=== PATIENT | female | born 1960 | race Caucasian/White ===

== ENCOUNTER 2017-11-25 10:46 | Outpatient (REF) | payer OTHER, SELFPAY ==
--- NOTE | 2017-11-25 09:15 | PAPFT_PTH ---
PATIENT: Bettina Rosenberg LOC: [facility] U#:[id number] AGE/SX: 57/F ROOM: RE11/25/[address]: Gely Regan : 1960 BED: DIS: 11/25/2017 SPEC #: [id number] RECD: 11/25/17 13:06 STATUS: JÚNIOR REHannah #: [id number] KOBE: 11/25/17 09:[address]: Gely Regan DEPT: [facility] Cytology RECD BY: Jewell Palacios ENTERED: 11/25/17 13:06 SP TYPE: PAPFT OTHR DR: Marcela Ayala Tissues: 1 - CX/ENDOCX FOR PAP SMEARS Procedures: PAP THIN PREP/[facility] Screening HPV DNA PROBE Comments: [id number] (CHLAMYDIA/GC)
[2017-11-26 14:54] LABS: Chlamydia Result Negative; GC Result Negative; Specimen Description SEE COMMENTS
== END 2017-11-25 11:06 ==
LOC: NCHCN 10:46
PROVIDERS: Visit Provider Nurse Practitioner
DX: Z11.3 Encounter for screening for infections with a predominantly sexual mode of transmission (principal); Z12.4 Encounter for screening for malignant neoplasm of cervix; Z11.51 Encounter for screening for human papillomavirus (HPV)
CPT/HCPCS: 87491; 87591; 88142; 87624

== ENCOUNTER 2020-10-02 14:08 | Outpatient (REF) | payer OTHER, SELFPAY ==
[2020-10-02 16:15] LABS: Bilirubin Negative (Negative); Blood Negative (Negative); Clarity Sl Cloudy (Clear); Glucose Negative (Negative); Ketones Trace mg/dL (Negative); Leukocyte Esterase Small (Negative); Nitrite Negative (Negative); Specific Gravity 1.015 (1.005-1.025); Urobilinogen 0.2 EU/dL (Up TO 0.2)
[2020-10-02 16:34] LABS: RBC 0-2 HPF (0-2)
[2020-10-02 16:35] LABS: Bacteria Rare HPF (Negative); C & S Indicated? C&S Done As Ordered; Epithelial Cells Many HPF (Negative)
== END 2020-10-02 14:09 | disposition home or self-care (01) ==
LOC: NCHCN 14:08
PROVIDERS: Visit Provider Nurse Practitioner Family
DX: R10.2 Pelvic and perineal pain (principal); R82.998 Other abnormal findings in urine
CPT/HCPCS: 81003; 81015; 87086

== ENCOUNTER 2021-07-10 19:26 | Outpatient (REF) | payer OTHER, SELFPAY ==
[2021-07-10 20:52] LABS: HCT 34.1 % (36.0-46.0); HGB 11.7 g/dL (11.2-15.7); MCH 32.2 pg (27.0-33.0); MCHC 34.3 % (32.0-36.0); MCV 94 fL (80-95); MPV 9.6 fL (8.0-11.0); Platelet Count 266 10^3/uL (130-400); RBC 3.63 10^6/uL (3.93-5.22); RDW 11.8 % (11.7-14.6); RDW-SD 40.5 fL; WBC 7.09 10^3/uL (4.4-10.8)
[2021-07-10 21:02] LABS: ALT 60 U/L (14-59); AST 66 U/L (15-37); Albumin 4.2 g/dL (3.4-5.0); Alkaline Phosphatase 110 U/L (46-116); Anion Gap 5.8 mmol/L (3-11); BUN 14 mg/dL (7-18); Bilirubin, Total 0.6 mg/dL (0.2-1.0); C-Reactive Protein 0.56 mg/dL (0.0-0.3); CO2 27.2 mmol/L (21.0-32.0); CREATININE 0.6 mg/dL (0.55-1.02); Calcium 9.1 mg/dL (8.5-10.1); Chloride 93 mmol/L (98-107); Glucose 92 mg/dL (74-106); Potassium 4.6 mmol/L (3.5-5.1); Sodium 126 mmol/L (136-145); Total Protein 8.2 g/dL (6.4-8.2)
[2021-07-10 21:41] LABS: Vitamin B12 866 pg/mL (193-986)
[2021-07-11 18:39] LABS: Rheumatoid Factor <8.6 IU/mL (<12.0)
[2021-07-14 15:27] LABS: ANA Interpretation Positive (Negative); ANA Titer Pattern 1:320 Homogeneous
== END 2021-07-10 19:27 | disposition home or self-care (01) ==
LOC: LBN 19:26
PROVIDERS: Visit Provider Nurse Practitioner Family
DX: M54.89 Other dorsalgia (principal); G89.29 Other chronic pain; E87.1 Hypo-osmolality and hyponatremia; E53.8 Deficiency of other specified B group vitamins
CPT/HCPCS: 80053; 85027; 82607; 86038; 86140; 86431

== ENCOUNTER 2021-11-20 18:08 | Outpatient (REF) | payer OTHER, SELFPAY ==
[2021-11-20 18:26] LABS: HCT 33.8 % (36.0-46.0); HGB 11.8 g/dL (11.2-15.7); MCH 33.1 pg (27.0-33.0); MCHC 34.9 % (32.0-36.0); MCV 95 fL (80-95); MPV 9.9 fL (8.0-11.0); Platelet Count 233 10^3/uL (130-400); RBC 3.56 10^6/uL (3.93-5.22); RDW 11.2 % (11.7-14.6); RDW-SD 39.2 fL; WBC 5.93 10^3/uL (4.4-10.8)
[2021-11-20 19:09] LABS: ALT 61 U/L (14-59); AST 69 U/L (15-37); Albumin 4.3 g/dL (3.4-5.0); Alkaline Phosphatase 107 U/L (46-116); Anion Gap 8.4 mmol/L (3-11); BUN 8 mg/dL (7-18); Bilirubin, Total 0.6 mg/dL (0.2-1.0); CO2 27.6 mmol/L (21.0-32.0); CREATININE 0.6 mg/dL (0.55-1.02); Calcium 9.6 mg/dL (8.5-10.1); Chloride 94 mmol/L (98-107); Estimated GFR 102.06 (mL/min/1.73m2); Glucose 104 mg/dL (74-106); Potassium 4.5 mmol/L (3.5-5.1); Sodium 130 mmol/L (136-145); Total Protein 8.5 g/dL (6.4-8.2)
== END 2021-11-20 18:09 | disposition home or self-care (01) ==
LOC: NCHCN 18:08
PROVIDERS: Visit Provider Nurse Practitioner Family
DX: K76.0 Fatty (change of) liver, not elsewhere classified (principal); R79.89 Other specified abnormal findings of blood chemistry; E87.1 Hypo-osmolality and hyponatremia
CPT/HCPCS: 80053; 85027

== ENCOUNTER 2024-07-28 15:23 | Outpatient (REF) | payer OTHER, SELFPAY ==
[2024-07-28 22:02] LABS: HCT 30.9 % (36.0-46.0); HGB 10.8 g/dL (11.2-15.7); MCH 32.4 pg (27.0-33.0); MCV 93 fL (80-95); MPV 10.6 fL (8.0-11.0); Platelet Count 249 10^3/uL (130-400); RBC 3.33 10^6/uL (3.93-5.22); RDW 11.6 % (11.7-14.6); RDW-SD 39.4 fL; WBC 6.44 10^3/uL (4.4-10.8)
[2024-07-28 22:04] LABS: ESR 55 mm/hr (0-30)
[2024-07-28 22:13] LABS: ALT 43 U/L (14-59); AST 55 U/L (15-37); Alkaline Phosphatase 86 U/L (46-116); Anion Gap 9.1 mmol/L (3-11); BUN 10 mg/dL (7-18); Bilirubin, Total 0.7 mg/dL (0.2-1.0); CO2 25.9 mmol/L (21.0-32.0); CREATININE 0.6 mg/dL (0.55-1.02); Calcium 9.1 mg/dL (8.5-10.1); Calculated LDL 191 mg/dL (<100); Chloride 95 mmol/L (98-107); Cholesterol 262 mg/dL (<200); Estimated GFR 100.17 (mL/min/1.73m2); Glucose 98 mg/dL (74-106); HDL Cholesterol 50 mg/dL (>or=50); Sodium 130 mmol/L (136-145); Total Protein 8.2 g/dL (6.4-8.2); Triglyceride 105 mg/dL (<150)
[2024-07-31 14:05] LABS: ANA Interpretation Positive (Negative); ANA Titer Pattern 1:80 Speckled
== END 2024-07-28 15:24 | disposition home or self-care (01) ==
LOC: NCHCN 15:23
PROVIDERS: PCP Nurse Practitioner Family; Visit Provider Nurse Practitioner Family
DX: G89.29 Other chronic pain (principal); I10 Essential (primary) hypertension; E78.5 Hyperlipidemia, unspecified
CPT/HCPCS: 80053; 80061; 85027; 85652; 86038

== ENCOUNTER 2024-11-01 15:06 | Outpatient (REF) | payer OTHER, SELFPAY ==
[2024-11-01 21:22] LABS: Iron 148 ug/dL (50-170); Total Iron Binding Capacity 347 ug/dL (250-450)
[2024-11-01 21:58] LABS: ALT 39 U/L (14-59); AST 42 U/L (15-37); Albumin 4.1 g/dL (3.4-5.0); Alkaline Phosphatase 97 U/L (46-116); Anion Gap 10.6 mmol/L (3-11); BUN 9 mg/dL (7-18); Bilirubin, Total 1.0 mg/dL (0.2-1.0); CO2 24.4 mmol/L (21.0-32.0); Calcium 9.2 mg/dL (8.5-10.1); Chloride 92 mmol/L (98-107); Estimated GFR 100.17 (mL/min/1.73m2); Ferritin 197 ng/mL (8-252); Folate 20.0 ng/mL (8.6-20.0); Glucose 99 mg/dL (74-106); Potassium 4.1 mmol/L (3.5-5.1); Sodium 127 mmol/L (136-145); TSH (W/Ref FT4) 1.59 uIU/mL (0.36-3.74); Total Protein 8.1 g/dL (6.4-8.2); Vitamin B12 483 pg/mL (193-986)
== END 2024-11-01 15:07 | disposition home or self-care (01) ==
LOC: NCHCN 15:06
PROVIDERS: PCP Nurse Practitioner Family; Visit Provider Nurse Practitioner Family
DX: R71.8 Other abnormality of red blood cells (principal); R53.82 Chronic fatigue, unspecified; E87.1 Hypo-osmolality and hyponatremia
CPT/HCPCS: 80053; 82607; 82728; 82746; 83540; 83550; 84443

== ENCOUNTER → 2024-12-07 05:28 | Outpatient (CLI) | payer OTHER, SELFPAY ==
--- NOTE | 2024-12-07 | DI.MAMMO_ITS ---
Exam(s) MAMMO SCREENING EXAM: MAMMO SCREENING CLINICAL HISTORY: Z12.31 Screening. TECHNIQUE: Bilateral full field digital CC and MLO mammographic images were obtained with 3D tomosynthesis and utilizing computer aided detection (CAD). COMPARISON: None. Prior outside mammograms apparently not available. FINDINGS: There are no spiculated masses nor malignant appearing microcalcification groups. Benign-appearing lymph node in the upper-outer quadrant of the left breast noted. There is no significant architectural distortion nor skin thickening-retraction. IMPRESSION: No radiographic evidence of malignancy. BI-RADS Category 2 - Benign Findings Breast Density - Category B - There are scattered areas of fibroglandular density. Breast density Category C or D implies that the patient has dense breast tissue. Dense breast tissue can make it harder to find cancer on a mammogram. Dense breast tissue is also associated with an increased risk of breast cancer. This information about the result of the mammogram report was provided to the patient to raise their awareness. Use this report when you speak with the patient about their risks for breast cancer, which includes their family history. At that time, you may recommend additional screening tests (Ultrasound or MRI) as these tests may add significant information. A negative radiographic report should not delay biopsy if a dominant or clinically suspicious mass is present. Up to ten percent of cancers are not identified on mammography. A negative report may reinforce clinical impression. Adenosis and dense breasts may obscure an underlying neoplasm. False positive reports average 6 to 10%. Patient will receive a letter notifying them of these results.
== END ==
PROVIDERS: PCP Nurse Practitioner Family; Visit Provider Nurse Practitioner Family
DX: Z12.31 Encounter for screening mammogram for malignant neoplasm of breast (principal)
CPT/HCPCS: 77063; 77067